=== PATIENT | male | born 1975 | race American Indian/Alaskan Native ===

== ENCOUNTER 2017-01-09 14:36 | Emergency (ER) | payer BC ==
[2017-01-09 17:26] VITALS: BP 174/103
[2017-01-09] MEDS ORDERED: REGLAN IV ONE (17:33)
[2017-01-09] MEDS ORDERED: BENADRYL IV ONE (17:33)
--- NOTE | 2017-01-09 17:34 | Emergency Department Report ---
ED General Adult HPI - General Chief complaint: High BP Stated complaint: HEADACHE,HTN Time Seen by Provider: 01/09/17 17:23 Source: patient, family, EMS (ems notes not available at time of chart dictation), RN notes reviewed Mode of arrival: Stretcher Limitations: No Limitations - History of Present Illness Initial comments: This is a 41-year-old male. He is previously unknown to me. He can't recall the name of his primary care doctor. He presents to the ER with a complaint of headache and hypertension. The headache is throbbing and global. It is not sudden or thunderclap in nature. It did not respond spontaneously within an hour. There is no neck pain or neck stiffness. There is no vomiting. Patient reports a worsening headache a few years ago when he had pneumonia. To me, the patient denies loss of vision, change in vision, sore throat, extremity weakness, extremity numbness, bladder or bowel retention or incontinence. The patient indicates he is intermittently compliant with his antihypertensive therapy, because he does not like the way it makes him feel. -: Gradual Location: head Severity scale (0 -10): 10 Quality: aching Consistency: intermittent Improves with: none Worsens with: none Associated Symptoms: headaches. denies: confusion, chest pain, cough, diaphoresis, fever/chills, loss of appetite, malaise, nausea/vomiting, shortness of breath, syncope, weakness - Related Data Home Medications Medication Instructions Recorded Confirmed Last Taken Amlodipine Bes/Olmesartan Med 10 - 40 mg PO DAILY 01/09/17 01/09/17 01/09/17 [Law 5-20 mg] Allergies Allergy/AdvReac Type Severity Reaction Status Date / Time No Known Allergies Allergy Unverified 01/09/17 14:37 ED Review of Systems ROS: Stated complaint: HEADACHE,HTN Other details as noted in HPI Constitutional: denies: diaphoresis, malaise Eyes: denies: eye discharge, vision change ENT: denies: epistaxis Respiratory: denies: cough Cardiovascular: denies: chest pain Gastrointestinal: denies: vomiting Genitourinary: as per HPI Musculoskeletal: as per HPI Skin: as per HPI Neurological: headache Psychiatric: anxiety ED Past Medical Hx - Past Medical History Previous Medical History?: Yes Hx Hypertension: Yes - Surgical History Past Surgical History?: No - Social History Smoking Status: Never Smoker Substance Use Type: None - Medications Home Medications: Home Medications Medication Instructions Recorded Confirmed Last Taken Type Amlodipine Bes/Olmesartan Med 10 - 40 mg PO DAILY 01/09/17 01/09/17 01/09/17 History [Law 5-20 mg] ED Physical Exam - General Limitations: No Limitations General appearance: alert, in no apparent distress - Head Head exam: Present: atraumatic, normocephalic - Eye Eye exam: Present: normal appearance, PERRL, EOMI, other (there is no visual field cuts on direct confrontation. Visual acuity intact to finger counting, reading, color perception). Absent: nystagmus - ENT ENT exam: Present: normal exam, normal orophraynx, mucous membranes moist, normal external ear exam - Neck Neck exam: Present: normal inspection, full ROM. Absent: tenderness, meningismus - Respiratory Respiratory exam: Present: normal lung sounds bilaterally. Absent: respiratory distress, wheezes, rales, rhonchi, stridor, chest wall tenderness, accessory muscle use, decreased breath sounds, prolonged expiratory - Cardiovascular Cardiovascular Exam: Present: regular rate, normal rhythm, normal heart sounds. Absent: bradycardia, tachycardia, irregular rhythm, systolic murmur, diastolic murmur, rubs, gallop - GI/Abdominal GI/Abdominal exam: Present: soft, normal bowel sounds. Absent: distended, tenderness, guarding, rebound, rigid, pulsatile mass - Rectal Rectal exam: Present: deferred - Extremities Exam Extremities exam: Present: normal inspection, full ROM, normal capillary refill. Absent: tenderness, pedal edema, joint swelling, calf tenderness - Back Exam Back exam: Present: normal inspection, full ROM. Absent: tenderness, CVA tenderness (R), CVA tenderness (L), muscle spasm, paraspinal tenderness, vertebral tenderness - Neurological Exam Neurological exam: Present: alert, oriented X3, normal gait (there is no pass pointing. Normal [id number]. Negative pronator drift. Normal gait. Normal tandem gait. Negative Romberg.), other (Extraocular movements intact. Tongue midline. No facial droop. Facial sensation intact to light touch in the V1, V2 , V3 distribution bilaterally. 5 and 5 strength in 4 extremities.. Sensation is intact to light touch in 4 extremities.). Absent: motor sensory deficit - Psychiatric Psychiatric exam: Present: normal affect, normal mood - Skin Skin exam: Present: warm, dry, intact, normal color. Absent: rash ED Course Vital Signs 01/09/17 01/09/17 01/09/17 15:07 16:44 17:25 Temperature 98.5 F Pulse Rate 76 74 84 Respiratory 16 18 18 Rate Blood Pressure 155/98 167/104 174/103 [Left] O2 Sat by Pulse 96 97 99 Oximetry - Reevaluation(s) Reevaluation #1: 01/09/17 19:02 Differential diagnosis: Migraine headache, tension headache, cluster headache, incidental hypertension/elevated blood pressure Assessment and plan: 41-year-old male who is noncompliant with antihypertensive medication and nonspecific headache. Alert and oriented 3, GCS of 15, NIH score of 0. Headache historically does not sound consistent with hemorrhagic or ischemic stroke. We will treat the patient symptomatically. We will obtain a noncontrast head CT to exclude spontaneous intracranial hemorrhage, but I think that this is unlikely. Elevated blood pressure is appreciated, this is most likely chronic secondary to the patient and family's report of medication noncompliance. As for the [employer] clinical policy: . Are ED blood pressure readings accurate and reliable for screening asymptomatic patients for hypertension? Level A recommendations. None specified. Level B recommendations. If blood pressure measurements are persistently elevated with a systolic blood pressure greater than 140 mm Hg or diastolic blood pressure greater than 90 mm Hg, the patient should be referred for follow- up of possible hypertension and blood pressure management. Level C recommendations. Patients with a single elevated blood pressure reading may require further screening for hypertension in the outpatient setting. 2. Do asymptomatic patients with elevated blood pressures benefit from rapid lowering of their blood pressure? Level A recommendations. None specified. Level B recommendations. (1) Initiating treatment for asymptomatic hypertension in the ED is not necessary when patients have follow-up; (2) Rapidly lowering blood pressure in asymptomatic patients in the ED is unnecessary and may be harmful in some patients; (3) When ED treatment for asymptomatic hypertension is initiated, blood pressure management should attempt to gradually lower blood pressure and should not be expected to be normalized during the initial ED visit. Level C recommendations. None specified. Given that patient has a unremarkable neurologic examination, and unremarkable visual examination, does not have chest pain, but would not consent to the patient's symptoms to be consistent with end organ failure, and therefore does not require emergent decrease of blood pressure in the emergency room. Reevaluation #2: 01/09/17 19:23 CT scan of the brain is negative. Patient resting comfortably. Patient will be discharged. Repeat neurologic examination unremarkable. He feels improved after therapy. ED Medical Decision Making - Lab Data Result diagrams: 01/09/17 18:15 01/09/17 18:15 Vital Signs 01/09/17 01/09/17 01/09/17 15:07 16:44 17:25 Temperature 98.5 F Pulse Rate 76 74 84 Respiratory 16 18 18 Rate Blood Pressure 155/98 167/104 174/103 [Left] O2 Sat by Pulse 96 97 99 Oximetry Labs 01/09/17 01/09/17 01/09/17 18:15 18:15 18:15 WBC 10.2 RBC 5.16 H Hgb 14.7 Hct 45.2 MCV 88 MCH 28 MCHC 33 RDW 13.6 Plt Count 186 PT 12.8 INR 0.97 Sodium 140 Potassium 4.3 Chloride 100.2 Carbon Dioxide 28 Anion Gap 16 BUN 10 Creatinine 1.1 Estimated GFR > 60 BUN/Creatinine Ratio 9.09 Glucose 119 H Calcium 9.3 - Radiology Data Radiology results: report reviewed, image reviewed Noncontrast CAT scan the brain is negative for disease. Critical care attestation.: If time is entered above; I have spent that time in minutes in the direct care of this critically ill patient, excluding procedure time. ED Disposition Clinical Impression: Elevated blood pressure reading, Headache Disposition: DISCHARGED TO HOME OR SELFCARE Is pt being admited?: No Does the pt Need Aspirin: No Condition: Stable Instructions: Acute Headache (ED), Hypertension (ED) Additional Instructions: Take Tylenol, every 4 hours, alternating with ibuprofen every 6 hours as needed for headache and pain. Follow up with any of the listed specialist for further evaluation and management of blood pressure. Blood pressure is noted to be elevated today, and this should be followed up and managed by her primary care doctor or realty loan specialist. Follow-up with either the listed physician specialist within the next 7-10 days. Long-term complications of hypertension/elevated blood pressure includes stroke , heart attack, disability , paralysis, loss of quality of life. Return to the ER right away with new pain, worsened pain, migration of pain, fevers or chills, intractable nausea or vomiting, inability to tolerate liquid feeds. Referrals: PRIMARY CARE, [Primary Care Provider] - 3-5 Days MIGUEL ANGEL MEDRANO MD [Staff Physician] - 3-5 Days LYNNE DUNBAR MD [Staff Physician] - 3-5 Days
[2017-01-09 18:26] LABS: Hematocrit 45.2 % (35.5-45.6); Hemoglobin 14.7 gm/dl (11.8-15.2); Mean Corpuscular HGB Conc 33 % (32-34); Mean Corpuscular Hemoglobin 28 pg (28-32); Mean Corpuscular Volume 88 fl (84-94); Platelet Count 186 K/mm3 (140-440); Red Blood Count 5.16 M/mm3 (3.65-5.03); Red Cell Distribution Width 13.6 % (13.2-15.2); White Blood Count 10.2 K/mm3 (4.5-11.0)
[2017-01-09 18:37] LABS: INR 0.97 (0.87-1.13)
[2017-01-09 18:44] LABS: Anion Gap 16 mmol/L; BUN/Creatinine Ratio 9.09; Blood Urea Nitrogen 10 mg/dL (9-20); Calcium 9.3 mg/dL (8.4-10.2); Carbon Dioxide 28 mmol/L (22-30); Chloride 100.2 mmol/L (98-107); Glucose 119 mg/dL (75-100); Potassium 4.3 mmol/L (3.6-5.0); Sodium 140 mmol/L (137-145)
--- NOTE | 2017-01-09 19:12 | Cat Scan Report ---
FINAL REPORT PROCEDURE: CT HEAD/BRAIN WO CON TECHNIQUE: Computerized tomography of the head was performed without contrast material. HISTORY: Headache COMPARISON: No prior studies are available for comparison. FINDINGS: No CT evidence of intracranial mass, hemorrhage, acute territorial infarction, or hydrocephalus. The intracranial arteries are symmetric in density. There is a mucosal retention cyst or polyp in the left maxillary sinus. Calvarium is intact. IMPRESSION: No CT evidence of acute intracranial abnormality
== END 2017-01-09 19:40 | disposition home or self-care (01) ==
LOC: ED 14:36
DX: I10 Essential (primary) hypertension (principal); R51 Headache
CPT/HCPCS: 36415; 70450; 80048; 85027; 85610; 96374; 96375; 99284; J1200; J2765